=== PATIENT | female | born 1990 ===

== ENCOUNTER 2016-08-30 17:17 | Emergency (ER) | payer BC ==
--- NOTE | 2016-08-30 17:54 | UC ---
Laceration HPI - HPI Summary HPI Summary: Fell forward while ice skating earlier this evening, sustained 1.25cm lac to R chin. No LOC, vomiting, ZAPATA, neck pain, or dental pain. - History Of Current Complaint Chief Complaint: UCLaceration Stated Complaint: CHIN LACERATION Time Seen by Provider: 08/30/16 17:31 Hx Obtained From: Patient Laceration Location: Face Mechanism Of Injury: Blunt Trauma Onset/Duration: Sudden Onset Severity: Mild Aggravating Factors: Nothing - Allergies/Home Medications Allergies/Adverse Reactions: Allergies Allergy/AdvReac Type Severity Reaction Status Date / Time No Known Allergies Allergy Verified 08/30/16 17:25 Home Medications: Home Medications Oral Control 08/30/16 [History] PMH/Surg Hx/FS Hx/Imm Hx Previously Healthy: Yes - Surgical History Surgical History: Yes Surgery Procedure, Year, and Place: wisdom teeth extraction - Family History Known Family History: Positive: Hypertension - Social History Occupation: Student Alcohol Use: None Substance Use Type: None Smoking Status (MU): Never Smoked Tobacco Review of Systems Constitutional: Negative Skin: Other - chin lac Eyes: Negative ENT: Negative Respiratory: Negative Cardiovascular: Negative Gastrointestinal: Negative Genitourinary: Negative Motor: Negative Neurovascular: Negative Musculoskeletal: Negative Neurological: Negative Psychological: Negative All Other Systems Reviewed And Are Negative: Yes Physical Exam Triage Information Reviewed: Yes Appearance: Well-Appearing, No Pain Distress, Well-Nourished Vital Signs: Initial Vital Signs Temp 98.9 F 08/30/16 17:26 Pulse 82 08/30/16 17:26 Resp 16 08/30/16 17:26 BP 125/82 08/30/16 17:26 Pulse Ox 100 08/30/16 17:26 Vital Signs Reviewed: Yes Eye Exam: Normal Eyes: Positive: Conjunctiva Clear ENT Exam: Normal ENT: Positive: Normal ENT inspection, Hearing grossly normal, Pharynx normal, TMs normal Dental Exam: Normal Dental: Negative: Percussion Tenderness @, Dental Fracture @ Neck exam: Normal, Other - no c-spine tenderness Neck: Positive: Supple, Nontender Respiratory Exam: Normal Respiratory: Positive: Chest non-tender, Lungs clear, Normal breath sounds, No respiratory distress, No accessory muscle use Cardiovascular Exam: Normal Cardiovascular: Positive: RRR, No Murmur Musculoskeletal Exam: Normal Neurological Exam: Normal Psychological Exam: Normal Skin Exam: Other - 1.25cm lac on chin Laceration Repair - Laceration Repair 1 Description: Linear Laceration Size After Repair: Length (cm) - 1.25, Width (mm) - 0, Depth (mm) - 0 Modified For Repair: No Cleansing Completed Via Routine Prep: Yes Irrigation With Pressure Irrigation Device: Yes Closure Material: Skin Adhesive, SteriStrips Laceration Course/Dx - Differential Dx - Laceration/Wound Provider Diagnoses: chin laceration, glue and steristrips Discharge - Discharge Plan Condition: Stable Disposition: HOME Patient Education Materials: Skin Adhesive Care (ED), Steristrips (ED) Referrals: No Primary Care Phys,NOPCP [Primary Care Provider] - Additional Instructions: You can allow the glue and steristrips to wear off on their own. Try to keep them intact and protected for at least 5 days. Come back if you suspect infection or other problem.
== END 2016-08-30 17:57 | disposition home or self-care (01) ==
LOC: UCEAST 17:17
DX: S01.81XA Laceration without foreign body of other part of head, initial encounter (principal); V00.211A Fall from ice-skates, initial encounter; Y93.21 Activity, ice skating; Y92.9 Unspecified place or not applicable
CPT/HCPCS: 12011; 99201; G0463

== ENCOUNTER 2021-01-17 06:44 | Inpatient (IN) ==
[2021-01-17] MEDS ORDERED: Lactated Ringers 1000 ml BAG 1,000 ML IV ONE ×2 (07:04→15:25)
[2021-01-17] MEDS ORDERED: Buffered Lidocaine 1% SYRIN 1 ml INTRADERM ONE (07:04)
[2021-01-17] MEDS ORDERED: Morphine 10 MG/ML VIAL (1 ml) IV ONE (07:51)
[2021-01-17] MEDS ORDERED: Promethazine INJ(RESTRICTED) 25 MG/ML 1 ml VIAL IV ONE (07:52)
[2021-01-17] MEDS ORDERED: Lactated Ringers 1000 ml BAG 1,000 ML IV SCH ×2 (08:00→16:00)
[2021-01-17] MEDS ORDERED: Penicillin G Potassium IV 5,000,000 UNITS in NS 0.9% 100 ml BAG 100 ML IVPB ONE (08:00)
[2021-01-17 08:37] LABS: ABS Lymphocytes 1.8 10^3/ul (1.0-4.8); ABS Monocytes 0.8 10^3/ul (0-0.8); ABS Neutrophils 10.5 10^3/ul (1.5-7.7); Eosinophil % 0.1 %; Hematocrit 40 % (35-47); Hemoglobin 13.4 g/dL (12.0-16.0); Lymphocyte % 13.7 %; Mean Corpuscular HGB Conc 34 g/dL (31-36); Mean Corpuscular Hemoglobin 33 pg (27-31); Mean Corpuscular Volume 97 fL (80-97); Mean Platelet Volume 9.7 fL (7.4-10.4); Platelet Count 306 10^3/uL (150-450); Red Blood Count 4.09 10^6 /uL (3.70-4.87); Red Cell Distribution Width 14 % (10-15); White Blood Count 13.1 10^3/uL (3.5-10.8)
[2021-01-17 12:00] LABS: Urine Benzodiazepine Screen None Detected (None Detect); Urine Cannabinoids Screen None Detected (None Detect); Urine Opiates Screen Presumptive Positive (None Detect)
[2021-01-17] MEDS: Penicillin G Potassium IV 3,000,000 UNITS in NS 0.9% 100 ml BAG 100 ML IVPB SCH ×3 (12:35→20:27)
[2021-01-17] MEDS ORDERED: OBEPIDURAL 250 ML EPIDURAL ONE (14:27)
[2021-01-17] MEDS ORDERED: Sodium Citrate/Citric Acid LIQ 15 ML UDC PO PRN (15:25)
[2021-01-17] MEDS ORDERED: OBEPIDURAL 250 ML EPIDURAL SCH (16:00)
[2021-01-17 16:44] LABS: Urine Appearance Clear; Urine Bacteria Absent (Absent); Urine Bilirubin Negative (Negative); Urine Blood Negative (Negative); Urine Color Straw; Urine Glucose Negative (Negative); Urine Ketones 1+ (Negative); Urine Nitrite Negative (Negative); Urine Protein Negative (Negative); Urine Red Blood Cell Trace(0-2/hpf) (Absent); Urine Squamous Epithelial Cell Present (Absent); Urine Urobilinogen Negative (Negative); Urine White Blood Cell Absent (Absent)
[2021-01-17] MEDS ORDERED: Lidocaine/Epinephrin 1.5%/200 5 ML AMP INJ ONE (23:09)
[2021-01-18] MEDS: Penicillin G Potassium IV 3,000,000 UNITS in NS 0.9% 100 ml BAG 100 ML IVPB SCH ×2 (00:26→04:41)
[2021-01-18] MEDS ORDERED: Oxytocin in LR 20 UNITS/1,000 ML BAG IVPB SCH ×2 (01:00→10:00)
[2021-01-18] MEDS ORDERED: Lidocaine 2% w/ EPI 1:200,000 MPF 20 ML SDV VIAL ONE (02:54)
[2021-01-18] MEDS: Ampicillin ADVAN 2 GM in NS 0.9% 100 ml BAG 100 ML IVPB SCH ×3 (06:36→18:48)
[2021-01-18] MEDS: GENTAMICIN ADULT IVPB SCH (07:19)
[2021-01-18] MEDS: NS 0.9% IVPB SCH (07:19)
[2021-01-18] MEDS ORDERED: Varicella Virus Vaccine Live 0.5 ML VIAL SUBCUT ONE (09:19)
[2021-01-18] MEDS ORDERED: Dibucaine 1% OINT 28.35 GM TUBE PR PRN (09:19)
[2021-01-18] MEDS ORDERED: Witch Hazel PAD JAR TOPICAL PRN (09:19)
[2021-01-18] MEDS ORDERED: Measles, Mumps,Rubella VACC 0.5 ML/VIAL SUBCUT ONE (09:19)
[2021-01-18] MEDS ORDERED: Methylergonovine 0.2 mg AMPULE 1 ml AMP IM ONE (09:23)
[2021-01-18] MEDS ORDERED: Lidocaine 1% VIAL 10 MG/ML VIAL ONE ×2 (09:39→14:29)
[2021-01-18] MEDS ORDERED: Lactated Ringers 1000 ml BAG 1,000 ML IV SCH (10:00)
[2021-01-19] MEDS: Ampicillin ADVAN 2 GM in NS 0.9% 100 ml BAG 100 ML IVPB SCH ×2 (00:29→08:00)
[2021-01-19] MEDS: NS 0.9% IVPB SCH (06:36)
[2021-01-19] MEDS: GENTAMICIN ADULT IVPB SCH (06:36)
[2021-01-19 07:06] LABS: ABS Basophils 0.1 10^3/ul (0-0.2); ABS Eosinophils 0.2 10^3/ul (0-0.6); ABS Lymphocytes 3.1 10^3/ul (1.0-4.8); ABS Monocytes 1.5 10^3/ul (0-0.8); ABS Neutrophils 13.1 10^3/ul (1.5-7.7); Eosinophil % 0.9 %; Hematocrit 32 % (35-47); Lymphocyte % 17.1 %; Mean Corpuscular HGB Conc 34 g/dL (31-36); Mean Corpuscular Hemoglobin 33 pg (27-31); Mean Corpuscular Volume 97 fL (80-97); Mean Platelet Volume 8.7 fL (7.4-10.4); Platelet Count 238 10^3/uL (150-450); Red Blood Count 3.32 10^6 /uL (3.70-4.87); Red Cell Distribution Width 14 % (10-15); White Blood Count 17.9 10^3/uL (3.5-10.8)
[2021-01-20 08:51] VITALS: BP 118/77
== END 2021-01-20 13:33 | disposition home or self-care (01) | DRG 541 ==
LOC: MCHOBOUT 06:44 → MCHOB 07:01
PROVIDERS: ADMIT Midwife; ATTEND Midwife